=== PATIENT | female | born 1980 | race Two or more races ===

== ENCOUNTER 2016-10-21 18:03 | Emergency (ER) | payer OTHER ==
[2016-10-21 18:08] VITALS: BMI 22.9
--- NOTE | 2016-10-21 18:19 | PDOC ---
[id number] History Source: Patient Exam Limitations: No Limitations - History of Present Illness Initial Comments: 10/21/16 18:32 The patient is a 36 year old female with a significant past medical history of pyelonephritis, who presents to the ED accompanied with for right sided abdominal pain. Patient states she was here in May 2016 and was told she had kidney stones. Patient complains of occasional diarrhea secondary to the abdominal pain. Patient denies fever, chills, nausea, vomiting. <Smith Nelson - Last Filed: 10/21/16 18:32> <Quan Quijano - Last Filed: 10/29/16 06:23> - General Chief Complaint: Pain Stated Complaint: PAIN, ACUTE Time Seen by Provider: 10/21/16 18:19 Past History - Past Medical History GI Disorders: Yes (GALLSTONES) Disorders: Yes (KIDNEY INFECTION) - Reproductive History Therapeutic (s) & number: Yes (1) - Psycho/Social/Smoking Cessation Hx Anxiety: No Suicidal Ideation: No Smoking History: Never smoked Have you smoked in the past 12 months: Yes Number of Cigarettes Smoked Daily: 1 Information on smoking cessation initiated: No Hx Alcohol Use: No Drug/Substance Use Hx: No Substance Use Type: None Hx Substance Use Treatment: No <Macarena Rudd - Last Filed: 10/21/16 18:19> <Smith Nelson - Last Filed: 10/21/16 18:32> <Quan Quijano - Last Filed: 10/29/16 06:23> - Past Medical History Allergies/Adverse Reactions: Allergies Allergy/AdvReac Type Severity Reaction Status Date / Time Penicillins Allergy Verified 10/21/16 18:39 Home Medications: Ambulatory Orders Nitrofurantoin Monohyd/M-Cryst [Macrobid -] 100 mg PO BID #14 capsule 10/21/16 Oxycodone HCl/Acetaminophen [Percocet 5-325 mg Tablet] 1 tab PO Q6H #5 tablet MDD 3 10/21/16 Review of Systems - Review of Systems Able to Perform ROS?: Yes Comments:: 10/21/16 18:33 GENERAL/CONSTITUTIONAL: No fever or chills. No weakness. HEAD, EYES, EARS, NOSE AND THROAT: No change in vision. No ear pain or discharge. No sore throat. CARDIOVASCULAR: No chest pain or shortness of breath. RESPIRATORY: No cough, wheezing, or hemoptysis. GASTROINTESTINAL: + right sided abdominal pain. + diarrhea. No nausea, vomiting , or constipation. GENITOURINARY: No dysuria, frequency, or change in urination. MUSCULOSKELETAL: No joint or muscle swelling or pain. No neck or back pain. SKIN: No rash NEUROLOGIC: No headache, vertigo, loss of consciousness, or change in strength/ sensation. ENDOCRINE: No increased thirst. No abnormal weight change. HEMATOLOGIC/LYMPHATIC: No anemia, easy bleeding, or history of blood clots. ALLERGIC/IMMUNOLOGIC: No hives or skin allergy. <Smith Nelson - Last Filed: 10/21/16 18:32> *Physical Exam - Vital Signs Last Vital Signs Temp Pulse Resp BP Pulse Ox 98 F 71 18 116/48 100 10/21/16 18:06 10/21/16 18:06 10/21/16 18:06 10/21/16 18:06 10/21/16 18:06 <Macarena Rudd - Last Filed: 10/21/16 18:19> - Vital Signs Last Vital Signs Temp Pulse Resp BP Pulse Ox 98 F 71 18 116/48 100 10/21/16 18:06 10/21/16 18:06 10/21/16 18:06 10/21/16 18:06 10/21/16 18:06 - Physical Exam Comments: 10/21/16 18:33 GENERAL: Awake, alert, and fully oriented, appears uncomfortable HEAD: No signs of trauma EYES: PERRLA, EOMI, sclera anicteric, conjunctiva clear ENT: Auricles normal inspection, hearing grossly normal, nares patent, oropharynx clear without exudates. Moist mucosa NECK: Normal ROM, supple, no lymphadenopathy, JVD, or masses LUNGS: Breath sounds equal, clear to auscultation bilaterally. No wheezes, and no crackles HEART: Regular rate and rhythm, normal S1 and S2, no murmurs, rubs or gallops ABDOMEN: Severe right lower quadrant tenderness and moderate right upper quadrant tenderness. Guarding, but no rebound. No masses EXTREMITIES: Normal range of motion, no edema. No clubbing or cyanosis. No cords, erythema, or tenderness NEUROLOGICAL: Cranial nerves II through XII grossly intact. Normal speech, normal gait SKIN: Warm, Dry, normal turgor, no rashes or lesions noted. <JeffyrgaymarliSmith - Last Filed: 10/21/16 18:32> - Vital Signs Last Vital Signs Temp Pulse Resp BP Pulse Ox 98 F 68 20 114/67 99 10/21/16 18:06 10/21/16 21:07 10/21/16 21:07 10/21/16 21:07 10/21/16 21:07 <Quan Quijano - Last Filed: 10/29/16 06:23> ED Treatment Course - LABORATORY CBC & Chemistry Diagram: 10/21/16 18:30 10/21/16 18:30 - ADDITIONAL ORDERS Additional order review: Laboratory Results 10/21/16 10/21/16 10/21/16 18:30 18:30 18:30 INR Sodium 140 Potassium 3.8 Chloride 103 Carbon Dioxide 29 Anion Gap 8 BUN 15 Creatinine 0.7 D Creat Clearance w eGFR > 60 Random Glucose 85 Calcium 9.0 Total Bilirubin 0.5 AST 12 L ALT 10 L D Alkaline Phosphatase 67 Total Protein 7.0 Albumin 3.9 Lipase 138 Urine Color Yellow Urine Appearance Clear Urine pH 6.0 Ur Specific Thayer 1.026 Urine Protein Negative Urine Glucose (UA) Negative Urine Ketones Negative Urine Blood 3+ H Urine Nitrite Negative Urine Bilirubin Negative Urine Urobilinogen Negative Ur Leukocyte Esterase 2+ H Urine RBC 21 Urine WBC 28 Ur Epithelial Cells Rare Urine Bacteria Few Urine Mucus Moderate Urine HCG, Qual Negative Blood Type A NEGATIVE Antibody Screen Negative 10/21/16 18:30 INR 1.06 Sodium Potassium Chloride Carbon Dioxide Anion Gap BUN Creatinine Creat Clearance w eGFR Random Glucose Calcium Total Bilirubin AST ALT Alkaline Phosphatase Total Protein Albumin Lipase Urine Color Urine Appearance Urine pH Ur Specific Thayer Urine Protein Urine Glucose (UA) Urine Ketones Urine Blood Urine Nitrite Urine Bilirubin Urine Urobilinogen Ur Leukocyte Esterase Urine RBC Urine WBC Ur Epithelial Cells Urine Bacteria Urine Mucus Urine HCG, Qual Blood Type Antibody Screen 10/21/16 18:30 RBC 4.44 MCV 93.3 MCHC 32.9 RDW 13.9 MPV 9.2 Neutrophils % 58.9 Lymphocytes % 28.0 Monocytes % 10.0 Eosinophils % 1.9 Basophils % 1.2 - Medications Given in the ED: ED Medications Discontinued Medications Generic Name Dose Route Start Last Admin Trade Name Freq PRN Reason Stop Dose Admin Sodium Chloride 1,000 mls @ 1,000 mls/hr 10/21/16 18:25 10/21/16 18:38 Normal Saline - IV 10/21/16 19:24 1,000 mls/hr ASDIR STA Administration Morphine Sulfate 4 mg 10/21/16 18:25 10/21/16 18:38 Morphine Injection - IVPUSH 10/21/16 18:26 4 mg ONCE ONE Administration <Quan Quijano - Last Filed: 10/29/16 06:23> Medical Decision Making - Medical Decision Making 10/21/16 21:41 This is a 36yo F with RUQ and RLQ abdominal pain received on sign out; plan per chart 10/29/16 06:22 10/29/16 06:22 <Quan Quijano - Last Filed: 10/29/16 06:23> *DC/Admit/Observation/Transfer <Macarena Rudd - Last Filed: 10/21/16 18:19> - Attestations Scribe Attestion: 10/21/16 18:33 Documentation prepared by Smith Nelson, acting as medical anthropology director for Mcaarena Rudd MD, MD. <Smith Nelson - Last Filed: 10/21/16 18:32> - Discharge Dispostion Admit: No Decision to Admit order Date/Time: 10/21/16 21:33 <Quan Quijano - Last Filed: 10/29/16 06:23> Diagnosis at time of Disposition: Liver lesion Abdominal pain Qualifiers: Abdominal location: right upper quadrant Qualified Code(s): R10.11 - Right upper quadrant pain - Discharge Dispostion Disposition: HOME Condition at time of disposition: Good - Prescriptions Prescriptions: Nitrofurantoin Monohyd/M-Cryst [Macrobid -] 100 mg PO BID #14 capsule Oxycodone HCl/Acetaminophen [Percocet 5-325 mg Tablet] 1 tab PO Q6H #5 tablet MDD 3 - Referrals Referrals: Mitchell David MD [Primary Care Provider] - - Patient Instructions Additional Instructions: As discussed, your symptoms may be related to two small lesions found on the liver and possibly as well to a urinary tract infection. Please take the medication prescribed and if there is any change otherwise in symptoms, please return immediately to the ED. It is essential for you to follow up with the PMD within the next 48 hours and if there is any change otherwise in symptoms, please return immediately to the ED. It will be necessary for you to also have evaluation of the liver lesions, possibly with MRI or biopsy; a surgeon or GI specialist would be appropriate as well for you to have contact with this week.
[2016-10-21] MEDS ORDERED: SODIUM CHLORIDE 1,000 ML IV STA (18:25)
[2016-10-21] MEDS ORDERED: morphine CARPU-JECT 4 MG/1 ML DISP.SYRIN IVPUSH ONE ×2 (18:25→21:29)
[2016-10-21] MEDS ORDERED: morphine CARPU-JECT 4 MG/1 ML DISP.SYRIN ONE ×2 (18:33→21:38)
[2016-10-21 18:39] LABS: BASOPHIL 1.2 % (0-2.0); EOSINOPHIL 1.9 % (0-4.5); MCH 30.7 pg (25.7-33.7); MCHC 32.9 g/dl (32.0-36.0); MEAN CELL VOLUME 93.3 fl (80-96); MEAN PLT VOLUME 9.2 fl (7.5-11.1); NEUTROPHILS 58.9 % (42.8-82.8); PLATELET COUNT 231 K/MM3 (134-434); RDW 13.9 % (11.6-15.6); WHITE BLOOD COUNT 11.1 K/mm3 (4.0-10.0)
[2016-10-21 18:41] LABS: URINE APPEARANCE CLEAR; URINE BILIRUBIN NEGATIVE (NEGATIVE); URINE COLOR YELLOW; URINE GLUCOSE (UA) NEGATIVE (NEGATIVE); URINE KETONE NEGATIVE (NEGATIVE); URINE NITRITE NEGATIVE (NEGATIVE); URINE PROTEIN NEGATIVE (NEGATIVE); URINE UROBILINOGEN NEGATIVE E.U./dl (0.2-1.0)
[2016-10-21 18:43] LABS: URINE BLOOD 3+ (NEGATIVE); URINE LEUK ESTERASE 2+ (NEGATIVE)
[2016-10-21 18:51] LABS: INR 1.06 (0.82-1.09); PROTHROMBIN TIME (PATIENT) 11.7 SEC (9.98-11.88)
[2016-10-21 18:59] LABS: URINE BACTERIA FEW /hpf (NONE SEEN); URINE MUCUS MODERATE; URINE RBC 21 /hpf (0-3); URINE WBC 28 /hpf (3-5)
[2016-10-21 19:00] LABS: ALBUMIN 3.9 g/dl (3.4-5.0); ALK PHOS 67 U/L (45-117); ANION GAP 8 (8-16); BILIRUBIN,TOTAL 0.5 mg/dL (0.2-1.0); CO2 29 mmol/L (21-32); CREATININE 0.7 mg/dL (0.55-1.02); GLUCOSE,RANDOM 85 mg/dL (74-106); SGOT/AST 12 U/L (15-37); SGPT/ALT 10 U/L (12-78)
[2016-10-21] MEDS ORDERED: OXYCODONE/APAP 5/325MG COMBO TABLET PO ONE (21:29)
--- NOTE | 2016-10-21 21:32 | PDOC ---
*Physical Exam - Vital Signs Last Vital Signs Temp Pulse Resp BP Pulse Ox 98 F 68 20 114/67 99 10/21/16 18:06 10/21/16 21:07 10/21/16 21:07 10/21/16 21:07 10/21/16 21:07 ED Treatment Course - LABORATORY CBC & Chemistry Diagram: 10/21/16 18:30 10/21/16 18:30 - ADDITIONAL ORDERS Additional order review: Laboratory Results 10/21/16 10/21/16 10/21/16 18:30 18:30 18:30 INR Sodium 140 Potassium 3.8 Chloride 103 Carbon Dioxide 29 Anion Gap 8 BUN 15 Creatinine 0.7 D Creat Clearance w eGFR > 60 Random Glucose 85 Calcium 9.0 Total Bilirubin 0.5 AST 12 L ALT 10 L D Alkaline Phosphatase 67 Total Protein 7.0 Albumin 3.9 Lipase 138 Urine Color Yellow Urine Appearance Clear Urine pH 6.0 Ur Specific Collins 1.026 Urine Protein Negative Urine Glucose (UA) Negative Urine Ketones Negative Urine Blood 3+ H Urine Nitrite Negative Urine Bilirubin Negative Urine Urobilinogen Negative Ur Leukocyte Esterase 2+ H Urine RBC 21 Urine WBC 28 Ur Epithelial Cells Rare Urine Bacteria Few Urine Mucus Moderate Urine HCG, Qual Negative Blood Type A NEGATIVE Antibody Screen Negative 10/21/16 18:30 INR 1.06 Sodium Potassium Chloride Carbon Dioxide Anion Gap BUN Creatinine Creat Clearance w eGFR Random Glucose Calcium Total Bilirubin AST ALT Alkaline Phosphatase Total Protein Albumin Lipase Urine Color Urine Appearance Urine pH Ur Specific Collins Urine Protein Urine Glucose (UA) Urine Ketones Urine Blood Urine Nitrite Urine Bilirubin Urine Urobilinogen Ur Leukocyte Esterase Urine RBC Urine WBC Ur Epithelial Cells Urine Bacteria Urine Mucus Urine HCG, Qual Blood Type Antibody Screen 10/21/16 18:30 RBC 4.44 MCV 93.3 MCHC 32.9 RDW 13.9 MPV 9.2 Neutrophils % 58.9 Lymphocytes % 28.0 Monocytes % 10.0 Eosinophils % 1.9 Basophils % 1.2 - Medications Given in the ED: ED Medications Discontinued Medications Generic Name Dose Route Start Last Admin Trade Name Freq PRN Reason Stop Dose Admin Sodium Chloride 1,000 mls @ 1,000 mls/hr 10/21/16 18:25 10/21/16 18:38 Normal Saline - IV 10/21/16 19:24 1,000 mls/hr ASDIR STA Administration Morphine Sulfate 4 mg 10/21/16 18:25 10/21/16 18:38 Morphine Injection - IVPUSH 10/21/16 18:26 4 mg ONCE ONE Administration Medical Decision Making - Medical Decision Making 10/21/16 21:29 Pt received on sign out, mild discomfort; CT image shows normal appendix, no specific acute GB disease however, there are two lesions of the liver 1.4 and 1.6cm which are indeterminant and may be contributing to her symptoms. She is given instruction to follow up with the PMD within 24 hours for reevaluation and referral to surgery or GI who can biosy and further evaluation. 10/21/16 21:32 10/21/16 21:42 She will be encouraged to follow up with the PMD and I will also treat her UTI. *DC/Admit/Observation/Transfer Diagnosis at time of Disposition: Liver lesion Abdominal pain Qualifiers: Abdominal location: right upper quadrant Qualified Code(s): R10.11 - Right upper quadrant pain - Discharge Dispostion Disposition: HOME Condition at time of disposition: Good Admit: No Decision to Admit order Date/Time: 10/21/16 21:44 - Prescriptions Prescriptions: Nitrofurantoin Monohyd/M-Cryst [Macrobid -] 100 mg PO BID #14 capsule Oxycodone HCl/Acetaminophen [Percocet 5-325 mg Tablet] 1 tab PO Q6H #5 tablet MDD 3 - Referrals Referrals: Mitchell David MD [Primary Care Provider] - - Patient Instructions Additional Instructions: As discussed, your symptoms may be related to two small lesions found on the liver and possibly as well to a urinary tract infection. Please take the medication prescribed and if there is any change otherwise in symptoms, please return immediately to the ED. It is essential for you to follow up with the PMD within the next 48 hours and if there is any change otherwise in symptoms, please return immediately to the ED. It will be necessary for you to also have evaluation of the liver lesions, possibly with MRI or biopsy; a surgeon or GI specialist would be appropriate as well for you to have contact with this week. - Post Discharge Activity
[2016-10-21] MEDS ORDERED: OXYCODONE/APAP 5/325MG COMBO TABLET ONE (21:38)
[2016-10-21 22:10] VITALS: BP 160/69; PULSE 62; TEMP 98.3
== END 2016-10-21 22:10 | disposition home or self-care (01) ==
LOC: JER 18:03
PROC: 3E033NZ Introduction of Analgesics, Hypnotics, Sedatives into Peripheral Vein, Percutaneous Approach (ICD-10-PCS; principal; 2016-10-21)
DX: K75.9 Inflammatory liver disease, unspecified (principal)
CPT/HCPCS: 36415; 74177-TC; 80053; 81003; 81015; 83690; 84703; 85025; 85610; 86850; 86900; 86901; 99283-25

== ENCOUNTER 2016-12-19 09:07 | Emergency (ER) | payer OTHER ==
[2016-12-19 09:14] VITALS: BP 133/94; PULSE 74; TEMP 98; BMI 24.7
[2016-12-19] MEDS ORDERED: IBUPROFEN 400 MG TABLET (FP) PO ONE ×2 (09:21→09:27)
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
== END 2016-12-19 11:31 | disposition home or self-care (01) ==
LOC: JERFT 09:07
DX: S22.32XA Fracture of one rib, left side, initial encounter for closed fracture (principal); S05.11XA Contusion of eyeball and orbital tissues, right eye, initial encounter; S20.212A Contusion of left front wall of thorax, initial encounter; Y04.2XXA Assault by strike against or bumped into by another person, initial encounter; Y93.89 Activity, other specified; Y92.89 Other specified places as the place of occurrence of the external cause; Y07.9 Unspecified perpetrator of maltreatment and neglect
CPT/HCPCS: 71020-TC; 71111-TC; 84703; 99281-25

== ENCOUNTER 2017-12-19 09:22 | Emergency (ER) | payer OTHER ==
[2017-12-19 09:38] VITALS: BP 100/58; PULSE 75; TEMP 98.6; BMI 23.3
--- NOTE | 2017-12-19 10:20 | PDOC ---
History of Present Illness - General Chief Complaint: Pain, Acute Stated Complaint: ABD PAIN Time Seen by Provider: 12/19/17 09:43 - History of Present Illness Initial Comments: 12/19/17 10:20 37 yo F with no significant pmh who p/w suprapubic abdominal pain. Patient reports worsening, suprapubic pressure beginning yesterday ( 12/18/17) with no identifiable triggers. Also complains of L sided dull, flank pain beginning yesterday. Suprapubic Pain slightly improved with touch/massage. Denies dsyuria , hematuria, N/V, F/C. Decreased PO intake. Pain not improved with OTC Ibuprofen. Denies F/C, N/V, CP, SOB, vaginal bleeding/pain/itching/burning, diarrhea, constipation, urinary complaints, weakness, lightheadedness, sensory changes. PMHx: H/o pyelonephritis. SHx: Denies tobacco, or Etoh use. Denies IVDA. ROS: as noted above. Past History - Past Medical History Allergies/Adverse Reactions: Allergies Allergy/AdvReac Type Severity Reaction Status Date / Time Penicillins Allergy Verified 12/19/17 09:26 Home Medications: Ambulatory Orders NK [No Known Home Medication] 12/19/16 COPD: No GI Disorders: Yes (GALLSTONES) Disorders: Yes (KIDNEY INFECTION) - Reproductive History Therapeutic (s) & number: Yes (1) - Suicide/Smoking/Psychosocial Hx Smoking History: Current some day smoker Have you smoked in the past 12 months: Yes Number of Cigarettes Smoked Daily: 1 Information on smoking cessation initiated: No Hx Alcohol Use: No Drug/Substance Use Hx: No Substance Use Type: None Hx Substance Use Treatment: No Review of Systems - Review of Systems Comments:: 12/19/17 10:19 GENERAL/CONSTITUTIONAL: No fever or chills. No weakness. HEAD, EYES, EARS, NOSE AND THROAT: No change in vision. No ear pain or discharge. No sore throat. CARDIOVASCULAR: No chest pain or shortness of breath RESPIRATORY: No cough, wheezing, or hemoptysis. GASTROINTESTINAL: No nausea, vomiting, diarrhea or constipation. GENITOURINARY: + Suprapubic pain and L flank pain. No dysuria, frequency, or change in urination. MUSCULOSKELETAL: No joint or muscle swelling or pain. No neck or back pain. SKIN: No rash NEUROLOGIC: No headache, vertigo, loss of consciousness, or change in strength/ sensation. ENDOCRINE: No increased thirst. No abnormal weight change HEMATOLOGIC/LYMPHATIC: No anemia, easy bleeding, or history of blood clots. ALLERGIC/IMMUNOLOGIC: No hives or skin allergy. *Physical Exam - Vital Signs Last Vital Signs Temp Pulse Resp BP Pulse Ox 98.6 F 75 18 100/58 100 12/19/17 09:25 12/19/17 09:25 12/19/17 09:25 12/19/17 09:25 12/19/17 09:25 - Physical Exam Comments: 12/19/17 10:20 GENERAL: Awake, alert, and fully oriented, in no acute distress HEAD: No signs of trauma, normocephalic, atraumatic EYES: PERRLA, EOMI, sclera anicteric, conjunctiva clear ENT: Hearing grossly normal, nares patent, oropharynx clear without exudates. Moist mucosa NECK: Normal ROM, supple, no lymphadenopathy, JVD, or masses LUNGS: No distress, speaks full sentences, clear to auscultation bilaterally HEART: Regular rate and rhythm, normal S1 and S2, no murmurs, rubs or gallops, peripheral pulses normal and equal bilaterally. ABDOMEN: + Suprapubic ttp. + R flank ttp. Soft, nontender, normoactive bowel sounds. No guarding, no rebound. No masses EXTREMITIES : Normal inspection, Normal range of motion, no edema. No clubbing or cyanosis. SKIN: Warm, Dry, normal turgor, no rashes or lesions noted ED Treatment Course - LABORATORY CBC & Chemistry Diagram: 12/19/17 10:30 12/19/17 10:30 Medical Decision Making - Medical Decision Making 12/19/17 10:49 37 yo F with no significant pmh who p/w suprapubic abdominal pain and L Flank pain x 1 day. VSS, A&OX3. + Suprpapubic and L flank ttp. Obtain urine for suspected cystitis vs. pyelnoenprhitis ( low suspicion). No clinical s/s of pyelo; absent F/C, N/V, CVA ttp. Low suspicion of nephrolithiasis or obstructive uropathy. ED Course: CBC, CMP UA, Urine Cx. Kidney/Renal Bladder U/S 12/19/17 11:49 CBC: Unremarkable UA: Neg 12/19/17 12:42 CMP: Unremarkable 12/19/17 12:55 Patient requesting AMA from hospital prior to U/S. 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 Patient advised on risks of not performing recommended imaging. Patient VSS, tolerating PO intake, and seen ambulating the yeun. *DC/Admit/Observation/Transfer Diagnosis at time of Disposition: Suprapubic abdominal pain - Discharge Dispostion Disposition: AGAINST MEDICAL ADVICE Condition at time of disposition: Stable Decision to Admit order: No - Referrals - Patient Instructions Printed Discharge Instructions: DI for Abdominal Pain-Adult Additional Instructions: Please return to the emergency department with any new or worsening symptoms or concerns. Please follow up with your primary care physician within 72 hours. - Post Discharge Activity - Attestations Physician Attestion: 12/19/17 10:20 I attest to the information provided in this note.
[2017-12-19 11:10] LABS: BASO % 0.9 % (0-2.0); EOS % 2.2 % (0-4.5); HEMATOCRIT 40.8 % (32.4-45.2); HEMOGLOBIN 13.3 GM/dL (10.7-15.3); LYMPH % 29.2 % (8-40); MCH 31.2 pg (25.7-33.7); MCHC 32.7 g/dl (32.0-36.0); MEAN CELL VOLUME 95.2 fl (80-96); MEAN PLT VOLUME 9.5 fl (7.5-11.1); MONO % 9.5 % (3.8-10.2); NEUT % 58.2 % (42.8-82.8); PLATELET COUNT 218 K/MM3 (134-434); RBC 4.28 M/mm3 (3.60-5.2); RDW 13.7 % (11.6-15.6); WHITE BLOOD COUNT 6.8 K/mm3 (4.0-10.0)
[2017-12-19 11:11] LABS: URINE APPEARANCE SLCLOUDY; URINE BILIRUBIN NEGATIVE (<2.0 mg/dL); URINE COLOR YELLOW; URINE GLUCOSE (UA) NEGATIVE (NEGATIVE); URINE KETONE NEGATIVE (NEGATIVE); URINE LEUK ESTERASE TRACE (NEGATIVE); URINE NITRITE NEGATIVE (NEGATIVE); URINE PROTEIN NEGATIVE (NEGATIVE)
[2017-12-19 11:22] LABS: EPI CELLS MODERATE /HPF (FEW); URINE MUCUS RARE
--- NOTE | 2017-12-19 11:22 | PDOC ---
Attending Attestation - Resident Resident Name: Jad Mmcillan - ED Attending Attestation I have performed the following: I have examined & evaluated the patient, The case was reviewed & discussed with the resident, I agree w/resident's findings & plan, Exceptions are as noted - HPI HPI: 12/19/17 11:17 Ms Dwyer is a 37 yo F with a prior history of pyelonephritis She presents to the ER with a complaint of suprapubic pain which has been present for 1 days no fevers or chills Pt has had also mild left flank pain No gross hematuria, no frequency or urgency - Physicial Exam PE: 12/19/17 11:18 GENERAL: The patient is in no acute distress. LUNGS: Breath sounds equal, clear to auscultation bilaterally. No wheezes, and no crackles. HEART:Regular rate and rhythm, normal S1 and S2 without murmur, rub or gallop. ABDOMEN: Soft, mild suprapubic tenderness to palpation EXTREMITIES: Normal range of motion NEUROLOGICAL: Cranial nerves II through XII grossly intact. Normal speech. No focal neurological deficits. MUSCULOSKELETAL: Back non-tender to palpation, no CVA tenderness SKIN: Warm, Dry, normal turgor, no rashes or lesions noted. - Medical Decision Making 12/19/17 11:18 37 yo F presenting to the ER with a complaint of suprapububic pain DD: cystitis, UTI, pyelonephritis, pelvic pain due to cyst rupture Will do: Labs UA, Urine culture Toradol IVF Re assess 12/19/17 12:02 Laboratory Tests 12/19/17 12/19/17 12/19/17 10:30 10:30 10:30 WBC 6.8 D Hgb 13.3 Hct 40.8 Plt Count 218 BUN 12 Creatinine 0.5 L Urine Ketones Negative Urine Blood 1+ H Urine Nitrite Negative Ur Leukocyte Esterase Trace Urine WBC (Auto) 4 Urine RBC (Auto) 3 Pt could not wait for imaging Wanted to be discharged to home Pt signed out AMA
[2017-12-19 11:47] LABS: ALBUMIN 3.6 g/dl (3.4-5.0); ANION GAP 7 (8-16); BLOOD UREA NITROGEN 12 mg/dL (7-18); CALCIUM 8.1 mg/dL (8.5-10.1); CHLORIDE 105 mmol/L (98-107); CO2 29 mmol/L (21-32); GLUCOSE,RANDOM 89 mg/dL (74-106); POTASSIUM 3.9 mmol/L (3.5-5.1); SODIUM 141 mmol/L (136-145)
[2017-12-19 11:52] LABS: ALK PHOS 55 U/L (45-117); CREATININE 0.5 mg/dL (0.55-1.02); SGOT/AST 13 U/L (15-37); SGPT/ALT 9 U/L (12-78); TOT PROT 6.6 g/dl (6.4-8.2)
[2017-12-19] MEDS ORDERED: KETOROLAC TROMETHAMINE 60 MG/2 ML VIAL IM ONE (12:20)
[2017-12-19] MEDS ORDERED: KETOROLAC TROMETHAMINE 60 MG/2 ML VIAL ONE (12:22)
== END 2017-12-19 19:08 | disposition left against medical advice (07) ==
LOC: JER 09:22
PROC: 3E0233Z Introduction of Anti-inflammatory into Muscle, Percutaneous Approach (ICD-10-PCS; principal; 2017-12-19)
DX: R10.30 Lower abdominal pain, unspecified (principal)
CPT/HCPCS: 36415; 80053; 81003; 81015; 84703; 85025; 87086; 99283-25

== ENCOUNTER 2019-01-01 16:24 | Emergency (ER) | payer OTHER | END 2019-01-01 20:55 | disposition home or self-care (01) | LOC: JER 16:24 ==

== ENCOUNTER 2019-03-11 09:37 | Day surgery (SDC) | payer OTHER ==
[2019-03-11 09:46] VITALS: BMI 23.6
[2019-03-11] MEDS ORDERED: KETOROLAC TROMETHAMINE 30 MG/1 ML VIAL IM ONE (11:53)
[2019-03-11] MEDS ORDERED: KETOROLAC TROMETHAMINE 30 MG/1 ML VIAL ONE ×2 (12:10→14:53)
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
[2019-03-11 13:32] LABS: BASO % 1.1 % (0-2.0); EOS % 1.6 % (0-4.5); HEMATOCRIT 38.8 % (32.4-45.2); HEMOGLOBIN 13.1 GM/dL (10.7-15.3); LYMPH % 21.6 % (8-40); MCHC 33.7 g/dl (32.0-36.0); MEAN PLT VOLUME 9.3 fl (7.5-11.1); MONO % 9.2 % (3.8-10.2); NEUT % 66.5 % (42.8-82.8); PLATELET COUNT 285 K/MM3 (134-434); RBC 4.08 M/mm3 (3.60-5.2); RDW 13.1 % (11.6-15.6); WHITE BLOOD COUNT 8.5 K/mm3 (4.0-10.0)
[2019-03-11 13:39] LABS: INR 1.05 (0.83-1.09); PROTHROMBIN TIME (PATIENT) 12.4 SEC (9.7-13.0)
[2019-03-11] MEDS ORDERED: PROPOFOL 20 ML ONE (13:55)
[2019-03-11 13:59] LABS: ALBUMIN 3.7 g/dl (3.4-5.0); BILIRUBIN,TOTAL 0.3 mg/dL (0.2-1); BLOOD UREA NITROGEN 14.2 mg/dL (7-18); CALCIUM 8.7 mg/dL (8.5-10.1); CREATININE 0.5 mg/dL (0.55-1.3); POTASSIUM 4.2 mmol/L (3.5-5.1); TOT PROT 6.9 g/dl (6.4-8.2)
[2019-03-11] MEDS ORDERED: oxyCODONE HCL 5 MG TABLET PO PRN (14:20)
[2019-03-11] MEDS ORDERED: ONDANSETRON 4 MG/2 ML VIAL IVPUSH PRN (14:20)
[2019-03-11] MEDS ORDERED: PROMETHAZINE HCL 25 MG/1 ML VIAL IVPUSH PRN (14:20)
[2019-03-11] MEDS ORDERED: MIDAZOLAM HCL 2 MG/2 ML SINGLE DOSE VIAL ONE (14:26)
[2019-03-11] MEDS ORDERED: LACTATED RINGERS SOLUTION 1,000 ML IV SCH (14:30)
[2019-03-11] MEDS ORDERED: LIDOCAINE HCL/PF 2% SDV 5ML VIAL ONE (14:44)
[2019-03-11] MEDS ORDERED: DEXAMETHASONE SOD PHOSPHATE 4 MG/1 ML VIAL ONE (14:53)
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
--- NOTE | 2019-03-11 15:18 | OP ---
Operative Note - Note: Operative Date: 03/11/19 Pre-Operative Diagnosis: dislocated left elbow Operation: closed reduction under anesthesia left elbow, posterior long arm splint application Post-Operative Diagnosis: Same as Pre-op Surgeon: Theodore John Anesthesiologist/ANIMAL SHELTER WORKER: Steven Samayoa Anesthesia: General Estimated Blood Loss (mls): 0 Drains, Volume Out (mls): 0 Blood Volume Replaced (mls): 0 Fluid Volume Replaced (mls): 500 Operative Report Dictated: Yes
[2019-03-11] MEDS ORDERED: ACETAMINOPHEN INJECTION 100 ML IVPB ONE (15:35)
[2019-03-11] MEDS ORDERED: ACETAMINOPHEN 1000 MG/100 ML VIAL (NON FORMULARY) IVPB ONE ×2 (15:39→16:39)
[2019-03-11] MEDS ORDERED: oxyCODONE HCL 5 MG TABLET ONE (16:33)
[2019-03-11 17:52] VITALS: BP 126/86; PULSE 85; TEMP 97.9
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
== END 2019-03-11 17:50 | disposition home or self-care (01) ==
LOC: JER 09:37 → JERFT 09:37 → JASUSAT 13:49
PROVIDERS: ATTEND Orthopaedic Surgery
PROC: 0RSMXZZ Reposition Left Elbow Joint, External Approach (ICD-10-PCS; principal; 2019-03-11 15:30)
DX: S53.105A Unspecified dislocation of left ulnohumeral joint, initial encounter (principal); X58.XXXA Exposure to other specified factors, initial encounter; Y93.9 Activity, unspecified; Y92.9 Unspecified place or not applicable; Y99.9 Unspecified external cause status
CPT/HCPCS: 36415; 70486-TC; 73060-TC-LT-FY; 73070-TC-LT-FY; 73090-TC-LT-FY; 76000-TC-FY; 80053; 84703; 85025; 85610; 85730; 94760; 99283-25; J0131

== ENCOUNTER 2019-03-14 14:28 | Emergency (ER) | payer OTHER ==
[2019-03-14 14:38] VITALS: BP 122/53; PULSE 85; TEMP 97.9; BMI 23.6
--- NOTE | 2019-03-14 14:40 | PDOC ---
Rapid Medical Evaluation Time Seen by Provider: 03/14/19 14:35 Medical Evaluation: Allergies Allergy/AdvReac Type Severity Reaction Status Date / Time Penicillins Allergy Verified 03/11/19 09:42 03/14/19 14:38 I have performed a brief exam on this patient. CC: "My left hand is swollen." PE: swelling to left hand. No paresthesias, paralysis. Fingers cool to touch. Orders: Brennan wrap removed from distal splint with relief in swelling/pain. The patient will proceed to the ER for further evaluation. Discharge Disposition - Diagnosis Edema - Referrals - Patient Instructions - Post Discharge Activity
--- NOTE | 2019-03-14 15:23 | PDOC ---
History of Present Illness - General Chief Complaint: Edema Stated Complaint: EDEMA LEFT ARM, ELBOW DISLOCATION 03/11 Time Seen by Provider: 03/14/19 14:35 History Source: Patient Exam Limitations: No Limitations - History of Present Illness Initial Comments: 03/14/19 17:21 The patient came for evaluation of tightness swelling and of left hand. Patient postop 3 days ago status post dislocation of left elbow and realigned by Dr. John. Posterior splint was placed with Brennan wrap. Hand swelled causing impingement to fingers and worsened pain. Came to ER per instruction of Dr. John. Denies numbness or tingling to fingers, no fevers, admits to to not keeping arm highly elevated Timing/Duration: 24 hours Severity: moderate Past History - Travel Traveled outside of the country in the last 30 days: No Close contact w/someone who was outside of country & ill: No - Past Medical History Allergies/Adverse Reactions: Allergies Allergy/AdvReac Type Severity Reaction Status Date / Time Penicillins Allergy Verified 03/14/19 14:39 Home Medications: Ambulatory Orders metroNIDAZOLE [Metronidazole] 500 mg PO TID #30 tablet 01/01/19 Oxycodone HCl/Acetaminophen [Oxycodone-Acetaminophen 5-325] 1 - 2 tab PO TID PRN #30 tablet MDD 6 03/11/19 COPD: No GI Disorders: Yes (GALLSTONES) Disorders: Yes (KIDNEY INFECTION) - Reproductive History Therapeutic (s) & number: Yes (1) - Immunization History Immunization Up to Date: Yes - Suicide/Smoking/Psychosocial Hx Smoking History: Never smoked Have you smoked in the past 12 months: Yes Number of Cigarettes Smoked Daily: 1 Information on smoking cessation initiated: No Hx Alcohol Use: No Drug/Substance Use Hx: No Substance Use Type: None Hx Substance Use Treatment: No Review of Systems - Review of Systems Able to Perform ROS?: Yes Is the patient limited Moldovan proficient: Yes Constitutional: Yes: See HPI. No: Symptoms Reported, Fever, Malaise HEENTM: No: Symptoms Reported Musculoskeletal: Yes: Symptoms Reported, See HPI, Joint Pain, Joint Swelling Integumentary: Yes: Symptoms Reported, See HPI, Bruising, Erythema All Other Systems: Reviewed and Negative *Physical Exam - Vital Signs Last Vital Signs Temp Pulse Resp BP Pulse Ox 97.9 F 85 17 122/53 L 96 03/14/19 14:36 03/14/19 14:36 03/14/19 14:36 03/14/19 14:36 03/14/19 14:36 - Physical Exam General Appearance: Yes: Nourished, Appropriately Dressed, Apparent Distress, Mild Distress, Moderate Distress HEENT: positive: ARNOLDO, Normal ENT Inspection, TMs Normal, Pharynx Normal Musculoskeletal: negative: Normal Inspection Extremity: positive: Normal Capillary Refill. negative: Normal Inspection, Normal Range of Motion (limited to severe distal edema) Integumentary: positive: Pale, Other (with friction blister to dorsum carpal/ navicular area. FROM digits with strong flexion and extension against resistance. States sensation is intact.) Neurologic: positive: transmission engineer II-XII NML intact, Fully Oriented, Alert, Normal Mood/ Affect Medical Decision Making - Medical Decision Making 03/14/19 17:26 Posterior splint were used and rewrapped with a much less tight Brennan wrap. Sling reapplied and given instructions for appropriate in positioning. Reinforced to be significant need for elevation to avoid further swelling and follow-up with Dr. John next week *DC/Admit/Observation/Transfer Diagnosis at time of Disposition: Cast discomfort - Discharge Dispostion Disposition: HOME Condition at time of disposition: Stable Decision to Admit order: No - Referrals - Patient Instructions Printed Discharge Instructions: How to Take Care of Your Cast Additional Instructions: Rest, ice to area on and off for 15 minutes 4-6 times a day Avoid heavy lifting or exercise until pain and swelling is resolved or until further directed Keep area highly elevated to reduce swelling Use splints/Brennan wrap as directed Followup with orthopedist in one to 2 days if not improving, if significantly improved may wait one week for followup with orthopedist May use ibuprofen 2-200 mg tablets every 6 hours as needed for pain - Post Discharge Activity Forms/Work/School Notes: Back to Work
== END 2019-03-14 15:26 | disposition home or self-care (01) ==
LOC: JERFT 14:28
DX: Z46.89 Encounter for fitting and adjustment of other specified devices (principal)
CPT/HCPCS: 99281-25

== ENCOUNTER 2020-06-07 10:43 | Emergency (ER) | payer OTHER ==
[2020-06-07 10:55] VITALS: BP 99/63; PULSE 76; TEMP 97.8; BMI 23.3
[2020-06-07] MEDS ORDERED: DIPHTH,PERTUSS(ACELL),TET 0.5 ML DISP.SYRIN IM ONE ×2 (10:57→11:37)
--- NOTE | 2020-06-07 10:59 | PDOC ---
Rapid Medical Evaluation Chief Complaint: Injury Time Seen by Provider: 06/07/20 10:48 Medical Evaluation: Allergies Allergy/AdvReac Type Severity Reaction Status Date / Time Penicillins Allergy Verified 06/07/20 10:51 Vital Signs Temp Pulse Resp BP Pulse Ox 97.8 F 76 16 99/63 100 06/07/20 10:51 06/07/20 10:51 06/07/20 10:51 06/07/20 10:51 06/07/20 10:51 06/07/20 10:57 CC: lac to left 2 nd digit by a knife. Unknown last tdap Exam: linear lac to left 2nd digit on dorsal aspect. FROM noted Plan: tdap Discharge Disposition - Diagnosis Laceration of left index finger - Referrals - Patient Instructions - Post Discharge Activity
[2020-06-07] MEDS ORDERED: LIDOCAINE HCL 1%, 10 MG/ML (20ML VIAL) ONE (11:31)
--- NOTE | 2020-06-07 11:51 | PDOC ---
History of Present Illness - General Chief Complaint: Injury Stated Complaint: FINGER INJURY Time Seen by Provider: 06/07/20 10:48 History Source: Patient Exam Limitations: No Limitations - History of Present Illness Initial Comments: 06/07/20 11:53 Patient is a 39-year-old female who presents to the ED with a left index finger laceration that she sustained while cutting the ends of ramsay just prior to arrival. She states instead of using a scissor she was using a knife and accidentally cut the dorsum of her left index finger. The patient is unsure of when her last tetanus booster was. She has no past medical history and states she is allergic to penicillins. She came directly to the emergency department for treatment. Past History - Medical History Allergies/Adverse Reactions: Allergies Allergy/AdvReac Type Severity Reaction Status Date / Time Penicillins Allergy Verified 06/07/20 10:51 Home Medications: Ambulatory Orders metroNIDAZOLE [Metronidazole] 500 mg PO TID #30 tablet 01/01/19 Oxycodone HCl/Acetaminophen [Oxycodone-Acetaminophen 5-325] 1 - 2 tab PO TID PRN #30 tablet MDD 6 03/11/19 hydrOXYzine PAMOATE [Vistaril -] 25 mg PO Q8H PRN #16 capsule 02/14/20 COPD: No GI Disorders: Yes (GALLSTONES) Disorders: Yes (KIDNEY INFECTION) - Reproductive History Is Patient Now?: No Therapeutic (s) & number: Yes (1) - Immunization History Immunization Up to Date: Yes - Psycho-Social/Smoking History Smoking History: Never smoked Have you smoked in the past 12 months: No Number of Cigarettes Smoked Daily: 1 - Substance Abuse Hx (Audit-C & DAST Scrn) How often the patient has a drink containing alcohol: Never Score: In Men: 4 or > Positive; In Women: 3 or > Positive: 0 Screen Result (Pos requires Nsg. Audit-10AR): Negative In the last yr the pt used illegal drug/Rx for NonMed reason: No Score: Yes response is considered Positive: 0 Screen Result (Positive result requires Nsg. DAST-10): Negative Review of Systems - Review of Systems Comments:: 06/07/20 11:54 - Review of Systems Able to Perform ROS?: Yes Constitutional: No: Fever, Chills, Loss of Appetite, Night Sweats, Weakness HEENTM: No: Eye Pain, Vision changes, Ear Pain, Throat Pain, Throat Swelling, Mouth Pain, Difficulty Swallowing Respiratory: No: Cough, Shortness of Breath, Wheezing, Sputum Production Cardiac (ROS): No: Chest Pain, Chest Tightness, Palpitations, Irregular Heart Beat, Edema ABD/GI: No: Nausea, Vomiting, Abdominal Pain, Diarrhea Musculoskeletal: No: Muscle Pain, Back Pain, Joint Pain, Muscle Weakness, Neck Pain Integumentary: No: Lesions, Rash; positive: Left index finger laceration Neurological: No: Headache, Numbness, Tingling, Weakness, Speech Difficulties *Physical Exam - Vital Signs Last Vital Signs Temp Pulse Resp BP Pulse Ox 97.8 F 76 16 99/63 100 06/07/20 10:51 06/07/20 10:51 06/07/20 10:51 06/07/20 10:51 06/07/20 10:51 - Physical Exam 06/07/20 11:54 - Physical Exam General Appearance: Nourished, Appropriately Dressed, No Distress HEENT: EOMI, Normal Voice, Hearing Grossly Normal Neck: Supple, No Lymphadenopathy (R), No Lymphadenopathy (L), No Rigidity, No Decreased range of motion Respiratory/Chest: Lungs Clear, Normal Breath Sounds. No Respiratory Distress, No Accessory Muscle Use Cardiovascular: Regular Rhythm, Regular Rate, S1, S2 Musculoskeletal: Normal Inspection. No Decreased Range of Motion Extremity: Normal Capillary Refill, Normal Inspection Integumentary: Normal Color, Dry. No Rash; 2 cm laceration to the dorsum of the left index finger, linear, nongaping. No sign of infection. No sign of foreign body. No bony or muscle involvement appreciated. Sensation intact distally. Patient able to flex and extend actively against resistance at the DIP, PIP and MCP. Neurologic: education specialist II-XII NML intact, Fully Oriented, Alert, Normal Mood/Affect, Normal Response Procedures - Laceration/Wound Repair Left Dorsal 2nd digit Wound Length: to 2.5 cm Wound Explored: clean Wound's Depth, Shape: superficial, linear Irrigated w/ Saline: Yes Betadine Prep: Yes Anesthesia: 1% Lidocaine Amount of Anesthetic (ccs): 1 Wound Repaired With: Sutures Suture Size/Type: 5:0, nylon Number of Sutures: 4 Sterile Dressing Applied: Yes ED Treatment Course - Medications Given in the ED: ED Medications Discontinued Medications Generic Name Dose Route Start Last Admin Trade Name Shahida PRN Reason Stop Dose Admin Diphtheria/Tetanus/Acell Pertussis 0.5 ml 06/07/20 10:57 06/07/20 11:36 Boostrix - IM 06/07/20 10:58 0.5 ml .ONCE ONE Administration Medical Decision Making - Medical Decision Making 06/07/20 11:48 Assessment: Patient is a 39-year-old female with a left index finger laceration. Patient has an unknown tetanus booster. Plan: -Suture repair performed in the ED -Boostrix given -Patient given wound care instructions -She is to return in 7 days for suture removal. She understands and agrees with this treatment plan and she is stable for discharge Discharge - Discharge Information Problems reviewed: Yes Clinical Impression/Diagnosis: Laceration of left index finger Qualifiers: Encounter type: initial encounter Damage to nail status: without damage Foreign body presence: without foreign body Qualified Code(s): S61.211A - Laceration without foreign body of left index finger without damage to nail, initial encounter Condition: Stable Disposition: HOME - Follow up/Referral - Patient Discharge Instructions Patient Printed Discharge Instructions: DI for Laceration Repair Additional Instructions: Keep the wound clean and dry for 24 hours. After 24 hours you can wash the wound once daily with warm water and soap. Allow the wound to dry completely before covering it. If you are home keep the wound uncovered and allow the wound to dry completely. If you are away from home keep the wound covered with a regular Band-Aid. Return to the emergency department in 7 days to have the sutures removed. Return sooner for increased pain, increased redness, pus from the wound, sutures coming out on their own, or any other worsening symptoms. - Post Discharge Activity Work/Back to School Note: Back to Work
[2020-06-07] MEDS ORDERED: LIDOCAINE HCL 1%, 10 MG/ML (50 mL VIAL) SQ ONE (11:52)
== END 2020-06-07 11:59 | disposition home or self-care (01) ==
LOC: JERFT 10:43 → JER 10:43 → JERFT 11:59
PROC: 0HQGXZZ Repair Left Hand Skin, External Approach (ICD-10-PCS; principal; 2020-06-07)
PROC: 3E0234Z Introduction of Serum, Toxoid and Vaccine into Muscle, Percutaneous Approach (ICD-10-PCS; 2020-06-07)
DX: S61.211A Laceration without foreign body of left index finger without damage to nail, initial encounter (principal)
CPT/HCPCS: 90715; 99284-25

== ENCOUNTER 2021-07-03 14:13 | Emergency (ER) | payer OTHER ==
[2021-07-03 14:29] VITALS: BP 98/65; PULSE 71; TEMP 98.2; BMI 24.1
[2021-07-03] MEDS ORDERED: ACETAMINOPHEN 500 MG TABLET (FP) PO ONE (15:09)
[2021-07-03] MEDS ORDERED: ACETAMINOPHEN 500 MG TABLET (FP) ONE (15:12)
== END 2021-07-03 18:17 | disposition home or self-care (01) ==
LOC: JER 14:13
DX: M54.2 Cervicalgia (principal); S09.90XA Unspecified injury of head, initial encounter; S06.0X0A Concussion without loss of consciousness, initial encounter; W10.9XXA Fall (on) (from) unspecified stairs and steps, initial encounter; Y92.9 Unspecified place or not applicable
CPT/HCPCS: 70450-TC; 70486-TC; 72125-TC; 99284-25

== ENCOUNTER 2022-09-17 10:23 | Emergency (ER) | payer OTHER ==
[2022-09-17 10:30] VITALS: BP 115/76; PULSE 86; RESP 18; TEMP 98.2; BMI 26.2
[2022-09-17] MEDS ORDERED: KETOROLAC TROMETHAMINE 30 MG/1 ML VIAL IM ONE (10:51)
[2022-09-17] MEDS ORDERED: METHOCARBAMOL 500 MG TABLET PO ONE (10:51)
[2022-09-17] MEDS ORDERED: KETOROLAC TROMETHAMINE 30 MG/1 ML VIAL ONE (10:54)
[2022-09-17] MEDS ORDERED: METHOCARBAMOL 500 MG TABLET ONE (10:54)
== END 2022-09-17 11:11 | disposition home or self-care (01) ==
LOC: JER 10:23 → JERFT 10:23
PROC: 3E0233Z Introduction of Anti-inflammatory into Muscle, Percutaneous Approach (ICD-10-PCS; principal; 2022-09-17)
DX: M62.838 Other muscle spasm (principal)
CPT/HCPCS: 99284-25

== ENCOUNTER 2022-09-20 07:34 | Emergency (ER) | payer OTHER ==
[2022-09-20 07:57] VITALS: BP 119/88; PULSE 91; RESP 20; TEMP 97.7; BMI 24.5
[2022-09-20] MEDS ORDERED: ACETAMINOPHEN 500 MG TABLET (FP) PO ONE (08:45)
[2022-09-20] MEDS ORDERED: ACETAMINOPHEN 500 MG TABLET (FP) ONE (09:22)
[2022-09-20 10:39] LABS: BASO % 0.7 % (0-2.0); EOS % 0.9 % (0-4.5); HEMOGLOBIN 13.7 GM/dL (10.7-15.3); LYMPH % 24.9 % (8-40); MCH 32.1 pg (25.7-33.7); MCHC 33.5 g/dl (32.0-36.0); MEAN CELL VOLUME 95.9 fl (80-96); MEAN PLT VOLUME 8.6 fl (7.5-11.1); MONO % 8.2 % (3.8-10.2); NEUT % 65.3 % (42.8-82.8); PLATELET COUNT 264 10^3/uL (134-434); RBC 4.28 M/mm3 (3.60-5.2); RDW 13.9 % (11.6-15.6); WHITE BLOOD COUNT 12.6 K/mm3 (4.0-10.0)
[2022-09-20] MEDS ORDERED: METHOCARBAMOL 500 MG TABLET PO ONE (10:46)
[2022-09-20] MEDS ORDERED: METHOCARBAMOL 500 MG TABLET ONE (10:49)
[2022-09-20 10:59] LABS: CALCIUM 8.9 mg/dL (8.5-10.1)
[2022-09-20 11:00] LABS: ALBUMIN 4.2 g/dl (3.4-5.0); BLOOD UREA NITROGEN 9.7 mg/dL (7-18)
[2022-09-20 11:03] LABS: CREATININE 0.5 mg/dL (0.55-1.3)
[2022-09-20 11:05] LABS: BILIRUBIN,TOTAL 0.6 mg/dL (0.2-1); TOT PROT 7.4 g/dl (6.4-8.2)
== END 2022-09-20 11:27 | disposition home or self-care (01) ==
LOC: JERFT 07:34 → JER 07:34 → JERFT 11:27
DX: M79.602 Pain in left arm (principal)
CPT/HCPCS: 36415; 70450-TC; 72125-TC; 73200-TC-RT; 80053; 84484; 85025; 93005; 93010; 99285-25

== ENCOUNTER 2022-09-24 09:05 | Emergency (ER) | payer OTHER ==
[2022-09-24 09:13] VITALS: BP 126/87; PULSE 94; RESP 18; TEMP 97.9; BMI 24.2
[2022-09-24] MEDS ORDERED: KETOROLAC TROMETHAMINE 30 MG/1 ML VIAL IM ONE (09:44)
[2022-09-24] MEDS ORDERED: diazePAM 5 MG TABLET PO ONE (09:44)
[2022-09-24] MEDS ORDERED: diazePAM 5 MG TABLET ONE (10:32)
[2022-09-24] MEDS ORDERED: KETOROLAC TROMETHAMINE 30 MG/1 ML VIAL ONE (10:32)
[2022-09-24] MEDS ORDERED: GABAPENTIN 100 MG CAPSULE PO ONE (11:10)
[2022-09-24] MEDS ORDERED: GABAPENTIN 100 MG CAPSULE ONE (11:14)
== END 2022-09-24 11:50 | disposition home or self-care (01) ==
LOC: JER 09:05
PROC: 3E023GC Introduction of Other Therapeutic Substance into Muscle, Percutaneous Approach (ICD-10-PCS; principal; 2022-09-24)
DX: M79.2 Neuralgia and neuritis, unspecified (principal)
CPT/HCPCS: 99284-25

== ENCOUNTER 2023-05-05 10:42 | Emergency (ER) | payer OTHER ==
[2023-05-05 10:48] VITALS: TEMP 97.8; BMI 24.0
[2023-05-05 11:21] VITALS: RESP 20
[2023-05-05] MEDS ORDERED: KETOROLAC TROMETHAMINE 30 MG/1 ML VIAL IVPUSH ONE (11:22)
[2023-05-05] MEDS ORDERED: ONDANSETRON 4 MG/2 ML VIAL IVPUSH ONE (11:22)
[2023-05-05] MEDS ORDERED: SODIUM CHLORIDE 0.9% 500 ML INFUS.BAG IV ONE (11:23)
[2023-05-05 11:31] LABS: EPI CELLS >36 /uL (0-25.1); HYALINE CASTS 3 /uL (0-3.1); PH,URINE 6.5 (5.0-8.0); URINE APPEARANCE CLOUDY; URINE BACTERIA 1102 /uL (0-1359); URINE BILIRUBIN NEGATIVE (NEGATIVE); URINE COLOR YELLOW; URINE GLUCOSE (UA) NEGATIVE (NEGATIVE); URINE KETONE NEGATIVE (NEGATIVE); URINE LEUK ESTERASE NEGATIVE (NEGATIVE); URINE NITRITE NEGATIVE (NEGATIVE); URINE PROTEIN NEGATIVE (NEGATIVE); URINE RBC 75 /uL (0-23.9); URINE WBC 19 /uL (0-25.8)
[2023-05-05] MEDS ORDERED: ONDANSETRON 4 MG/2 ML VIAL ONE (11:31)
[2023-05-05] MEDS ORDERED: KETOROLAC TROMETHAMINE 30 MG/1 ML VIAL ONE (11:31)
[2023-05-05 11:32] LABS: HCG,QUALITATIVE URINE Negative
[2023-05-05 11:35] LABS: EOS % 2.4 % (0-4.5); HEMATOCRIT 39.5 % (32.4-45.2); HEMOGLOBIN 13.5 GM/dL (10.7-15.3); LYMPH % 28.8 % (8-40); MCH 32.5 pg (25.7-33.7); MCHC 34.1 g/dl (32.0-36.0); MEAN CELL VOLUME 95.3 fl (80-96); MEAN PLT VOLUME 8.4 fl (7.5-11.1); MONO % 7.6 % (3.8-10.2); NEUT % 60.2 % (42.8-82.8); PLATELET COUNT 263 10^3/uL (134-434); RBC 4.14 M/mm3 (3.60-5.2); RDW 13.7 % (11.6-15.6); WHITE BLOOD COUNT 8.8 K/mm3 (4.0-10.0)
[2023-05-05 12:04] LABS: POTASSIUM 3.9 mmol/L (3.5-5.1)
[2023-05-05 12:06] LABS: ALBUMIN 3.6 g/dl (3.4-5.0); BLOOD UREA NITROGEN 11.5 mg/dL (7-18); CALCIUM 8.7 mg/dL (8.5-10.1)
[2023-05-05 12:09] LABS: CREATININE 0.6 mg/dL (0.55-1.3)
[2023-05-05 12:11] LABS: BILIRUBIN,TOTAL 0.5 mg/dL (0.2-1); TOT PROT 6.6 g/dl (6.4-8.2)
[2023-05-05] MEDS ORDERED: CEFTRIAXONE 1 GM in DEXTROSE 5%-WATER - 100 ML IVPB ONE (13:20)
[2023-05-05] MEDS ORDERED: CEFTRIAXONE 1 GM/50 ML BAG ONE (14:09)
[2023-05-05] MEDS ORDERED: ACETAMINOPHEN 1000 MG/100 ML BAG IVPB ONE (14:27)
[2023-05-05] MEDS ORDERED: ACETAMINOPHEN INJECTION 100 ML IVPB ONE (14:28)
[2023-05-05 15:45] VITALS: BP 97/62; PULSE 78
== END 2023-05-05 16:09 | disposition home or self-care (01) ==
LOC: JER 10:42
PROC: 3E03329 Introduction of Other Anti-infective into Peripheral Vein, Percutaneous Approach (ICD-10-PCS; principal; 2023-05-05)
PROC: 3E033NZ Introduction of Analgesics, Hypnotics, Sedatives into Peripheral Vein, Percutaneous Approach (ICD-10-PCS; 2023-05-05)
PROC: 3E0333Z Introduction of Anti-inflammatory into Peripheral Vein, Percutaneous Approach (ICD-10-PCS; 2023-05-05)
PROC: 3E033GC Introduction of Other Therapeutic Substance into Peripheral Vein, Percutaneous Approach (ICD-10-PCS; 2023-05-05)
DX: R10.32 Left lower quadrant pain (principal); R35.0 Frequency of micturition; R11.0 Nausea; R68.83 Chills (without fever); N39.0 Urinary tract infection, site not specified; N83.202 Unspecified ovarian cyst, left side
CPT/HCPCS: 36415; 74150-TC; 76856-TC; 80053; 81003; 84703; 85025; 87086; 99285-25

== ENCOUNTER 2023-06-26 11:07 | Emergency (ER) | payer OTHER ==
[2023-06-26 11:21] VITALS: RESP 18; BMI 25.0
[2023-06-26] MEDS ORDERED: methylPREDNISolone NA SUCC 125 MG/2 ML VIAL IVPUSH ONE (11:39)
[2023-06-26] MEDS ORDERED: FAMOTIDINE 20 MG/50 ML IVPB 20 MG/50 ML MG IVPB ONE ×2 (11:39→11:46)
[2023-06-26] MEDS ORDERED: methylPREDNISolone NA SUCC 125 MG/2 ML VIAL ONE (11:45)
[2023-06-26 15:17] VITALS: BP 99/60; PULSE 85; TEMP 98
== END 2023-06-26 15:17 | disposition home or self-care (01) ==
LOC: JER 11:07
PROC: 3E033GC Introduction of Other Therapeutic Substance into Peripheral Vein, Percutaneous Approach (ICD-10-PCS; principal; 2023-06-26)
PROC: 3E033GC Introduction of Other Therapeutic Substance into Peripheral Vein, Percutaneous Approach (ICD-10-PCS; 2023-06-26)
PROC: 3E033GC Introduction of Other Therapeutic Substance into Peripheral Vein, Percutaneous Approach (ICD-10-PCS; 2023-06-26)
DX: K13.0 Diseases of lips (principal); R22.0 Localized swelling, mass and lump, head; R51.9 Headache, unspecified
CPT/HCPCS: 93005; 93010; 99284-25

== ENCOUNTER 2023-10-02 11:32 | Observation (INO) | payer OTHER ==
[2023-10-02 11:59] VITALS: BMI 24.7
[2023-10-02] MEDS ORDERED: ONDANSETRON 4 MG/2 ML VIAL ONE (13:06)
[2023-10-02] MEDS ORDERED: ACETAMINOPHEN INJECTION 100 ML IVPB ONE (13:19)
[2023-10-02] MEDS: LACTATED RINGERS SOLUTION 1000 ML INFUS.BAG IV ONE ×2 (13:30→16:44)
[2023-10-02] MEDS: ONDANSETRON 4 MG/2 ML VIAL IVPUSH ONE (13:30)
[2023-10-02 13:39] LABS: EPI CELLS >36 /uL (0-25.1); HYALINE CASTS 4 /uL (0-3.1); URINE APPEARANCE TURBID; URINE BACTERIA >9,000 /uL (0-1359); URINE BILIRUBIN NEGATIVE (NEGATIVE); URINE COLOR DK YELLOW; URINE GLUCOSE (UA) NEGATIVE (NEGATIVE); URINE KETONE 1+ (NEGATIVE); URINE LEUK ESTERASE 2+ (NEGATIVE); URINE NITRITE POSITIVE (NEGATIVE); URINE PROTEIN 2+ (NEGATIVE); URINE RBC 65 /uL (0-23.9); URINE WBC 1805 /uL (0-25.8)
[2023-10-02 13:58] LABS: BASO % 0.2 % (0-2.0); EOS % 0.2 % (0-4.5); HEMATOCRIT 20.2 % (32.4-45.2); LYMPH % 8.1 % (8-40); MCH 32.5 pg (25.7-33.7); MCHC 33.9 g/dl (32.0-36.0); MONO % 14.7 % (3.8-10.2); NEUT % 76.8 % (42.8-82.8); PLATELET COUNT 131 10^3/uL (134-434); RDW 13.3 % (11.6-15.6); WHITE BLOOD COUNT 7.7 K/mm3 (4.0-10.0)
[2023-10-02] MEDS ORDERED: CEFTRIAXONE 1 GM/50 ML BAG ONE (14:00)
[2023-10-02 14:09] LABS: HEMOGLOBIN 6.8 GM/dL (10.7-15.3)
[2023-10-02 14:13] LABS: CHLORIDE 108 mmol/L (98-107); POTASSIUM 3.9 mmol/L (3.5-5.1); SODIUM 138 mmol/L (136-145)
[2023-10-02 14:16] LABS: ALBUMIN 1.1 g/dl (3.4-5.0); ANION GAP 17 mmol/L (4-13); BLOOD UREA NITROGEN 6.9 mg/dL (7-18); CO2 13 mmol/L (21-32)
[2023-10-02 14:19] LABS: SGOT/AST 5 U/L (15-37)
[2023-10-02 14:20] LABS: BILIRUBIN,TOTAL 0.2 mg/dL (0.2-1)
[2023-10-02 14:21] LABS: TOT PROT 2.4 g/dl (6.4-8.2)
[2023-10-02 14:22] LABS: ALK PHOS 21 U/L (45-117)
[2023-10-02 14:33] LABS: CALCIUM 6.7 mg/dL (8.5-10.1); CREATININE < 0.2 mg/dL (0.55-1.3); GLUCOSE,RANDOM 46 mg/dL (74-106); MAGNESIUM 0.9 mg/dL (1.8-2.4); PHOSPHOROUS 0.9 mg/dL (2.5-4.9); SGPT/ALT < 6 U/L (13-61)
[2023-10-02 15:25] LABS: BASO % 0.5 % (0-2.0); EOS % 0.2 % (0-4.5); HEMATOCRIT 36.9 % (32.4-45.2); HEMOGLOBIN 12.1 GM/dL (10.7-15.3); LYMPH % 10.3 % (8-40); MCH 31.3 pg (25.7-33.7); MCHC 32.7 g/dl (32.0-36.0); MEAN CELL VOLUME 95.7 fl (80-96); MONO % 13.3 % (3.8-10.2); NEUT % 75.7 % (42.8-82.8); PLATELET COUNT 233 10^3/uL (134-434); RBC 3.86 M/mm3 (3.60-5.2); RDW 13.2 % (11.6-15.6)
[2023-10-02 15:44] LABS: POTASSIUM 3.5 mmol/L (3.5-5.1)
[2023-10-02 15:46] LABS: BLOOD UREA NITROGEN 12.6 mg/dL (7-18)
[2023-10-02 15:49] LABS: CREATININE 0.5 mg/dL (0.55-1.3); PHOSPHOROUS 3.5 mg/dL (2.5-4.9)
[2023-10-02 15:51] LABS: BILIRUBIN,TOTAL 0.5 mg/dL (0.2-1)
[2023-10-02 15:54] LABS: CALCIUM 8.6 mg/dL (8.5-10.1); TOT PROT 6.4 g/dl (6.4-8.2)
[2023-10-02] MEDS ORDERED: METOCLOPRAMIDE HCL INJECTION 10 MG/2 ML VIAL ONE (16:38)
[2023-10-02] MEDS: METOCLOPRAMIDE HCL INJECTION 10 MG/2 ML VIAL IVPUSH ONE (16:44)
[2023-10-02] MEDS: morphine CARPU-JECT 2 MG/1 ML DISP.SYRIN IVPUSH ONE (16:44)
[2023-10-02] MEDS ORDERED: BENZOCAINE/MENTH/CETYLPYRD CL 1 EACH LOZENGE MM PRN (19:16)
[2023-10-02] MEDS: ACETAMINOPHEN 1000 MG/100 ML BAG IVPB PRN (19:18)
[2023-10-02] MEDS: LACTATED RINGERS SOLUTION 1,000 ML IV SCH (19:58)
[2023-10-03 08:29] LABS: HEMATOCRIT 37.4 % (32.4-45.2); HEMOGLOBIN 12.7 GM/dL (10.7-15.3); MEAN CELL VOLUME 94.2 fl (80-96); MEAN PLT VOLUME 9.4 fl (7.5-11.1); PLATELET COUNT 270 10^3/uL (134-434); RBC 3.97 M/mm3 (3.60-5.2); RDW 13.3 % (11.6-15.6); WHITE BLOOD COUNT 15.6 K/mm3 (4.0-10.0)
[2023-10-03 08:55] LABS: BLOOD UREA NITROGEN 4.8 mg/dL (7-18); CALCIUM 8.6 mg/dL (8.5-10.1); PHOSPHOROUS 3.6 mg/dL (2.5-4.9)
[2023-10-03 08:57] LABS: BILIRUBIN,TOTAL 0.8 mg/dL (0.2-1); TOT PROT 6.3 g/dl (6.4-8.2)
[2023-10-03 08:58] LABS: CREATININE 0.4 mg/dL (0.55-1.3)
[2023-10-03 09:01] LABS: POTASSIUM 3.5 mmol/L (3.5-5.1)
[2023-10-03] MEDS: KETOROLAC TROMETHAMINE 15 MG/ML VIAL IVPUSH ONE (09:24)
[2023-10-03] MEDS: CEFTRIAXONE 1 GM in DEXTROSE 5%-WATER - 50 ML IVPB SCH (09:24)
[2023-10-03] MEDS: ENOXAPARIN NA (PORCINE) 40 MG/0.4 ML DISP.SYRIN SQ SCH (09:25)
[2023-10-03] MEDS: TRIMETHOBENZAMIDE HCL 200MG/2ML INJ IM PRN (17:57)
[2023-10-03] MEDS: ACETAMINOPHEN 325 MG TABLET (FP) PO PRN (21:35)
[2023-10-03] MEDS: MELATONIN 1 MG TABLET PO PRN (22:46)
[2023-10-04] MEDS: ACETAMINOPHEN 1000 MG/100 ML BAG IVPB ONE (03:10)
[2023-10-04 05:01] VITALS: RESP 18
[2023-10-04 07:30] LABS: POTASSIUM 3.2 mmol/L (3.5-5.1)
[2023-10-04 07:31] LABS: BLOOD UREA NITROGEN 5.3 mg/dL (7-18); CALCIUM 7.9 mg/dL (8.5-10.1)
[2023-10-04 07:35] LABS: CREATININE 0.3 mg/dL (0.55-1.3)
[2023-10-04 07:47] LABS: HEMOGLOBIN 12.4 GM/dL (10.7-15.3); MCH 32.2 pg (25.7-33.7); MCHC 34.4 g/dl (32.0-36.0); MEAN CELL VOLUME 93.7 fl (80-96); MEAN PLT VOLUME 9.4 fl (7.5-11.1); PLATELET COUNT 298 10^3/uL (134-434); RBC 3.84 M/mm3 (3.60-5.2); RDW 13.1 % (11.6-15.6); WHITE BLOOD COUNT 11.9 K/mm3 (4.0-10.0)
[2023-10-04] MEDS: ONDANSETRON 4 MG/2 ML VIAL IVPUSH PRN (09:46)
[2023-10-04] MEDS: LACTATED RINGERS SOLUTION 1,000 ML/1,000 ML INFUS.BAG IV SCH (10:40)
[2023-10-04] MEDS ORDERED: IOHEXOL (OMNIPAQUE PO) 12 MG/ML - 500 ML BOTTLE PO ONE (11:53)
[2023-10-04] MEDS: POTASSIUM CHLORIDE ORAL LIQUID 20 MEQ/15 ML PO SCH (11:53)
[2023-10-04 16:05] VITALS: BP 130/73; PULSE 81; TEMP 98.6
== END 2023-10-04 18:01 | disposition home or self-care (01) ==
LOC: JER 11:32 → JERBED 15:57 → J6S 17:36
PROVIDERS: ADMIT Internal Medicine; ATTEND Internal Medicine
PROC: 3E033NZ Introduction of Analgesics, Hypnotics, Sedatives into Peripheral Vein, Percutaneous Approach (ICD-10-PCS; principal; 2023-10-02)
PROC: 3E03329 Introduction of Other Anti-infective into Peripheral Vein, Percutaneous Approach (ICD-10-PCS; 2023-10-02)
PROC: 3E023GC Introduction of Other Therapeutic Substance into Muscle, Percutaneous Approach (ICD-10-PCS; 2023-10-02)
PROC: 3E0337Z Introduction of Electrolytic and Water Balance Substance into Peripheral Vein, Percutaneous Approach (ICD-10-PCS; 2023-10-02)
PROC: 3E033GC Introduction of Other Therapeutic Substance into Peripheral Vein, Percutaneous Approach (ICD-10-PCS; 2023-10-02)
DX: N12 Tubulo-interstitial nephritis, not specified as acute or chronic (principal); Z88.0 Allergy status to penicillin; Z87.440 Personal history of urinary (tract) infections
CPT/HCPCS: 0241U-QW; 36415; 74177-TC; 76775-TC; 80048; 80053; 81003; 82272; 83735; 84100; 84703; 85025; 85027; 86850; 86900; 86901; 86922; 87040; 87045; 87046; 87086; 87186; 87324; 87449; 93005; 93010; 96361; 96365; 96372; 96375; 96376; 99285-25; G0378; J0131; Q9967

== ENCOUNTER 2024-03-04 10:35 | Emergency (ER) | payer OTHER ==
[2024-03-04 10:56] VITALS: BP 109/63; PULSE 98; RESP 18; TEMP 97.6; BMI 23.6
[2024-03-04] MEDS ORDERED: ACETAMINOPHEN 325 MG TABLET (FP) ONE (10:59)
[2024-03-04] MEDS: ACETAMINOPHEN 500 MG TABLET (FP) PO ONE (11:01)
== END 2024-03-04 12:12 | disposition home or self-care (01) ==
LOC: JERFT 10:35
DX: S06.0X0A Concussion without loss of consciousness, initial encounter (principal); R42 Dizziness and giddiness; H53.149 Visual discomfort, unspecified; W20.8XXA Other cause of strike by thrown, projected or falling object, initial encounter
CPT/HCPCS: 70450-TC; 99284-25

== ENCOUNTER 2024-07-11 09:03 | Emergency (ER) | payer OTHER ==
[2024-07-11 09:42] VITALS: BP 105/69; PULSE 69; RESP 16; TEMP 98.3; BMI 25.7
[2024-07-11] MEDS: METOCLOPRAMIDE HCL INJECTION 10 MG/2 ML VIAL IVPUSH ONE (10:06)
[2024-07-11] MEDS ORDERED: PROCHLORPERAZINE INJECTION 10 MG/2 ML VIAL ONE (10:12)
[2024-07-11] MEDS: MAGNESIUM SULFATE IN WATER 2 GM/50 ML IVPB IVPB ONE (10:15)
[2024-07-11] MEDS: PROCHLORPERAZINE INJECTION 10 MG/2 ML VIAL IVPB ONE (10:26)
[2024-07-11] MEDS: LACTATED RINGERS SOLUTION 1000 ML INFUS.BAG IV ONE (10:26)
[2024-07-11] MEDS ORDERED: MAGNESIUM SULFATE IN WATER 2 GM/50 ML IVPB IVPB ONE (10:40)
[2024-07-11 11:12] LABS: BASO % 0.7 % (0-2.0); EOS % 1.6 % (0-4.5); HEMATOCRIT 42.3 % (32.4-45.2); HEMOGLOBIN 14.1 GM/dL (10.7-15.3); LYMPH % 23.3 % (8-40); MCH 31.9 pg (25.7-33.7); MCHC 33.3 g/dl (32.0-36.0); MEAN CELL VOLUME 95.7 fl (80-96); MEAN PLT VOLUME 8.8 fl (7.5-11.1); MONO % 7.5 % (3.8-10.2); NEUT % 66.9 % (42.8-82.8); PLATELET COUNT 296 10^3/uL (134-434); RBC 4.42 M/mm3 (3.60-5.2); RDW 13.8 % (11.6-15.6)
[2024-07-11 11:32] LABS: INR 0.92 (0.83-1.09); PROTHROMBIN TIME (PATIENT) 10.6 SEC (9.7-13.0)
[2024-07-11 11:34] LABS: ACTIVATED PTT 31.2 SECONDS (25.2-36.5); POTASSIUM 4.2 mmol/L (3.5-5.1)
[2024-07-11 11:36] LABS: CALCIUM 8.8 mg/dL (8.5-10.1)
[2024-07-11 11:37] LABS: ALBUMIN 4.1 g/dl (3.4-5.0); BLOOD UREA NITROGEN 10.3 mg/dL (7-18); MAGNESIUM 2.2 mg/dL (1.8-2.4)
[2024-07-11 11:40] LABS: CREATININE 0.5 mg/dL (0.55-1.3)
[2024-07-11 11:41] LABS: BILIRUBIN,TOTAL 0.5 mg/dL (0.2-1); TOT PROT 7.1 g/dl (6.4-8.2)
== END 2024-07-11 12:24 | disposition home or self-care (01) ==
LOC: JER 09:03
PROC: 3E033GC Introduction of Other Therapeutic Substance into Peripheral Vein, Percutaneous Approach (ICD-10-PCS; principal; 2024-07-11)
PROC: 3E033GC Introduction of Other Therapeutic Substance into Peripheral Vein, Percutaneous Approach (ICD-10-PCS; 2024-07-11)
DX: G43.909 Migraine, unspecified, not intractable, without status migrainosus (principal)
CPT/HCPCS: 36415; 70450-TC; 80053; 83735; 84703; 85025; 85610; 85730; 99284-25

== ENCOUNTER 2024-07-21 10:20 | Inpatient (IN) | payer OTHER ==
[2024-07-21] MEDS ORDERED: KETOROLAC TROMETHAMINE 15 MG/ML VIAL ONE (11:31)
[2024-07-21] MEDS: SODIUM CHLORIDE 0.9% 500 ML INFUS.BAG IV ONE (11:37)
[2024-07-21] MEDS: KETOROLAC TROMETHAMINE 15 MG/ML VIAL IVPUSH ONE (11:37)
[2024-07-21 11:50] LABS: BASO % 0.3 % (0-2.0); EOS % 0.2 % (0-4.5); HEMATOCRIT 47.5 % (32.4-45.2); HEMOGLOBIN 15.7 GM/dL (10.7-15.3); LYMPH % 14.5 % (8-40); MCH 31.2 pg (25.7-33.7); MCHC 33.1 g/dl (32.0-36.0); MEAN CELL VOLUME 94.4 fl (80-96); MEAN PLT VOLUME 8.9 fl (7.5-11.1); MONO % 7.9 % (3.8-10.2); NEUT % 77.1 % (42.8-82.8); PLATELET COUNT 352 10^3/uL (134-434); RBC 5.04 M/mm3 (3.60-5.2); RDW 13.5 % (11.6-15.6); WHITE BLOOD COUNT 13.4 K/mm3 (4.0-10.0)
[2024-07-21] MEDS ORDERED: ONDANSETRON 4 MG/2 ML VIAL ONE ×2 (11:53→12:47)
[2024-07-21 11:57] LABS: EPI CELLS 32 /uL (0-25.1); HYALINE CASTS 12 /uL (0-3.1); URINE APPEARANCE CLOUDY; URINE BACTERIA >9,000 /uL (0-1359); URINE BILIRUBIN NEGATIVE (NEGATIVE); URINE COLOR YELLOW; URINE GLUCOSE (UA) NEGATIVE (NEGATIVE); URINE KETONE 2+ (NEGATIVE); URINE LEUK ESTERASE 2+ (NEGATIVE); URINE NITRITE NEGATIVE (NEGATIVE); URINE PROTEIN 2+ (NEGATIVE); URINE UROBILINOGEN 0.2 mg/dL (0.2-1.0); URINE WBC 888 /uL (0-25.8)
[2024-07-21] MEDS: ONDANSETRON 4 MG/2 ML VIAL IVPUSH ONE ×2 (11:58→12:56)
[2024-07-21 12:12] LABS: POTASSIUM 3.7 mmol/L (3.5-5.1)
[2024-07-21 12:15] LABS: ALBUMIN 4.5 g/dl (3.4-5.0); BLOOD UREA NITROGEN 17.7 mg/dL (7-18)
[2024-07-21 12:18] LABS: CREATININE 0.8 mg/dL (0.55-1.3)
[2024-07-21 12:20] LABS: BILIRUBIN,TOTAL 0.8 mg/dL (0.2-1); TOT PROT 8.2 g/dl (6.4-8.2)
[2024-07-21 12:31] LABS: URINE RBC 465 /uL (0-23.9)
[2024-07-21 12:32] LABS: YEAST NONE SEEN (NEGATIVE)
[2024-07-21] MEDS ORDERED: ACETAMINOPHEN INJECTION 100 ML ONE (12:47)
[2024-07-21] MEDS ORDERED: CEFTRIAXONE 1 G/50 ML PREMIX 50 ML IVPB ONE (12:47)
[2024-07-21] MEDS: ACETAMINOPHEN 1000 MG/100 ML BAG IVPB ONE (12:56)
[2024-07-21] MEDS ORDERED: FAMOTIDINE 20 MG/50 ML IVPB 20 MG/50 ML MG IVPB ONE (13:31)
[2024-07-21] MEDS: FAMOTIDINE 20 MG/50 ML IVPB 20 MG/50 ML MG IVPB ONE (13:32)
[2024-07-21] MEDS ORDERED: MAG HYDROX/AL HYDROX/SIMETH -MYLANTA- ORAL SUSPENSION PO PRN (16:01)
[2024-07-21] MEDS: KETOROLAC TROMETHAMINE 15 MG/ML VIAL IVPUSH PRN (17:25)
[2024-07-21] MEDS: LACTATED RINGERS SOLUTION 1,000 ML/1,000 ML INFUS.BAG IV SCH (19:21)
[2024-07-21] MEDS: AZTREONAM 1 GM in DEXTROSE 5%-WATER - 50 ML IVPB SCH (19:22)
[2024-07-21] MEDS: ACETAMINOPHEN 500 MG TABLET (FP) PO PRN (19:24)
[2024-07-21] MEDS: MAG HYDROX/AL HYDROX/SIMETH 30 ML UNIT-DOSE CUP PO PRN (21:15)
[2024-07-21] MEDS: HEPARIN NA (PORCINE) 5,000 UNITS/ML 1ML VIAL SQ SCH (21:15)
[2024-07-21] MEDS: MELATONIN 5 MG TABLETS PO ONE (23:10)
[2024-07-22] MEDS: ONDANSETRON 4 MG/2 ML VIAL IVPUSH PRN (02:35)
[2024-07-22] MEDS: LORazepam 2 MG/ML SDV VIAL IVPUSH PRN (03:15)
[2024-07-22] MEDS: SODIUM CHLORIDE 1,000 ML IV SCH (03:16)
[2024-07-22 09:31] LABS: BASO % 0.6 % (0-2.0); EOS % 0.3 % (0-4.5); HEMATOCRIT 40.6 % (32.4-45.2); HEMOGLOBIN 13.3 GM/dL (10.7-15.3); LYMPH % 26.6 % (8-40); MCH 31.2 pg (25.7-33.7); MCHC 32.9 g/dl (32.0-36.0); MEAN CELL VOLUME 94.8 fl (80-96); MEAN PLT VOLUME 9.1 fl (7.5-11.1); MONO % 11.5 % (3.8-10.2); PLATELET COUNT 309 10^3/uL (134-434); RBC 4.28 M/mm3 (3.60-5.2); WHITE BLOOD COUNT 11.9 K/mm3 (4.0-10.0)
[2024-07-22 10:06] LABS: CALCIUM 8.8 mg/dL (8.5-10.1)
[2024-07-22 10:10] LABS: CREATININE 0.5 mg/dL (0.55-1.3)
[2024-07-22] MEDS: POTASSIUM CHLORIDE ORAL LIQUID 20 MEQ/15 ML PO ONE ×2 (12:52→14:25)
[2024-07-22] MEDS: ACETAMINOPHEN 1000 MG/100 ML BAG IVPB ONE ×2 (14:32→17:07)
[2024-07-22 15:10] VITALS: BMI 22.9
[2024-07-22] MEDS: LORazepam 1 MG TABLET PO PRN (15:54)
[2024-07-22] MEDS: AZTREONAM 1 GM in DEXTROSE 5%-WATER - 50 ML IVPB SCH (18:08)
[2024-07-23] MEDS: MELATONIN 5 MG TABLETS PO PRN (02:08)
[2024-07-23 08:30] LABS: BASO % 0.4 % (0-2.0); EOS % 0.4 % (0-4.5); HEMATOCRIT 41.4 % (32.4-45.2); HEMOGLOBIN 13.9 GM/dL (10.7-15.3); LYMPH % 21.9 % (8-40); MCH 31.8 pg (25.7-33.7); MCHC 33.7 g/dl (32.0-36.0); MEAN CELL VOLUME 94.6 fl (80-96); MEAN PLT VOLUME 8.6 fl (7.5-11.1); MONO % 9.3 % (3.8-10.2); PLATELET COUNT 290 10^3/uL (134-434); RBC 4.38 M/mm3 (3.60-5.2); WHITE BLOOD COUNT 7.7 K/mm3 (4.0-10.0)
[2024-07-23 08:44] LABS: POTASSIUM 3.2 mmol/L (3.5-5.1)
[2024-07-23 08:57] LABS: CALCIUM 8.3 mg/dL (8.5-10.1)
[2024-07-23 08:58] LABS: BLOOD UREA NITROGEN 8.3 mg/dL (7-18)
[2024-07-23 08:59] LABS: ALBUMIN 3.4 g/dl (3.4-5.0)
[2024-07-23 09:01] LABS: BILIRUBIN,TOTAL 0.6 mg/dL (0.2-1); CREATININE 0.4 mg/dL (0.55-1.3)
[2024-07-23 09:06] LABS: TOT PROT 6.2 g/dl (6.4-8.2)
[2024-07-23] MEDS: POTASSIUM CHLORIDE ORAL LIQUID 20 MEQ/15 ML PO ONE (09:31)
[2024-07-23] MEDS ORDERED: AZTREONAM 1 GM in DEXTROSE 5%-WATER - 50 ML IVPB SCH (18:00)
[2024-07-23 22:29] VITALS: RESP 20
[2024-07-24 06:17] VITALS: BP 101/62; PULSE 78; TEMP 97.7
[2024-07-24 08:39] LABS: BASO % 0.6 % (0-2.0); EOS % 0.8 % (0-4.5); HEMATOCRIT 40.7 % (32.4-45.2); HEMOGLOBIN 13.6 GM/dL (10.7-15.3); LYMPH % 23.4 % (8-40); MCH 31.9 pg (25.7-33.7); MCHC 33.4 g/dl (32.0-36.0); MEAN CELL VOLUME 95.4 fl (80-96); MEAN PLT VOLUME 8.7 fl (7.5-11.1); MONO % 9.3 % (3.8-10.2); NEUT % 65.9 % (42.8-82.8); PLATELET COUNT 303 10^3/uL (134-434); RBC 4.26 M/mm3 (3.60-5.2); RDW 12.9 % (11.6-15.6)
[2024-07-24 08:56] LABS: POTASSIUM 3.5 mmol/L (3.5-5.1)
[2024-07-24 09:03] LABS: CALCIUM 8.9 mg/dL (8.5-10.1)
[2024-07-24 09:04] LABS: ALBUMIN 3.4 g/dl (3.4-5.0); BLOOD UREA NITROGEN 10.8 mg/dL (7-18)
[2024-07-24 09:06] LABS: CREATININE 0.5 mg/dL (0.55-1.3)
[2024-07-24 09:08] LABS: BILIRUBIN,TOTAL 0.6 mg/dL (0.2-1); TOT PROT 6.4 g/dl (6.4-8.2)
== END 2024-07-24 11:43 | disposition home or self-care (01) | DRG 690 ==
LOC: JER 10:20 → JERBED 15:00 → J8W 17:06
PROVIDERS: ADMIT Internal Medicine; ATTEND Nurse Practitioner Family
DX: N12 Tubulo-interstitial nephritis, not specified as acute or chronic (principal); F12.90 Cannabis use, unspecified, uncomplicated; F10.90 Alcohol use, unspecified, uncomplicated
CPT/HCPCS: 36415; 76775-TC; 80048; 80053; 81003; 83690; 84703; 85025; 87086; 87186; 93005; 93010; 99285-25; J0131; J1644